=== PATIENT | male | born 1980 | race American Indian/Alaskan Native ===

== ENCOUNTER 2017-11-03 06:53 | Emergency (ER) | payer SELFPAY ==
[2017-11-03 07:29] VITALS: BP 108/78
[2017-11-03] MEDS ORDERED: XYLOCAINE 1% MPF 5 mL ONE (08:16)
[2017-11-03] MEDS ORDERED: XYLOCAINE 1% 20 mL INFILTRATI ONE (08:16)
[2017-11-03] MEDS ORDERED: XYLOCAINE 1% MPF 5 mL INFILTRATI ONE (08:19)
[2017-11-03] MEDS ORDERED: VIBRAMYCIN PO ONE (08:28)
--- NOTE | 2017-11-03 08:30 | Emergency Department Report ---
HPI - General Chief Complaint: Animal Bite Time Seen by Provider: 11/03/17 08:04 - HPI HPI: 36-year-old -[place] male presents to the emergency department with complaint of a tick attached to his lower right abdomen. The patient was walking across the street to the store and felt like there was something biting him. He looked down and saw a small insect attached that was very hard to remove. He then went and changed all of his clothes and did not make any more attempts to remove this insect. He denies any other past medical history. He denies any fever, rash, bleeding, discharge. ED Past Medical Hx - Past Medical History Previous Medical History?: No - Surgical History Past Surgical History?: Yes Additional Surgical History: right leg surgery for broken femur - Social History Smoking Status: Current Every Day Smoker Substance Use Type: Alcohol ED Review of Systems ROS: Stated complaint: INSECT BITE Other details as noted in HPI Comment: All other systems reviewed and negative Constitutional: denies: chills, fever Eyes: denies: eye pain, eye discharge, vision change ENT: denies: ear pain, throat pain Respiratory: denies: cough, shortness of breath, wheezing Cardiovascular: denies: chest pain, palpitations Gastrointestinal: denies: abdominal pain, nausea, diarrhea Genitourinary: denies: urgency, dysuria Musculoskeletal: denies: back pain, joint swelling, arthralgia Skin: denies: rash, lesions Neurological: denies: headache, weakness, paresthesias Physical Exam - Physical Exam Vital Signs: Vital Signs 11/03/17 07:26 Temperature 97.4 F L Pulse Rate 89 Respiratory 18 Rate Blood Pressure 108/78 O2 Sat by Pulse 99 Oximetry Physical Exam: GENERAL: The patient is well-developed well-nourished. HENT: Normocephalic. Atraumatic. Patient has moist mucous membranes. EYES: Extraocular motions are intact. NECK: Supple. Trachea is midline. CHEST/LUNGS: Clear to auscultation. There is no respiratory distress noted. HEART/CARDIOVASCULAR: Regular. There is no tachycardia. There is no murmur. ABDOMEN: Abdomen is soft, nontender. Patient has normal bowel sounds. There is no abdominal distention. SKIN: Skin is warm and dry. There is a very small insect with the appearance of a tick that is adhered to the right lower abdominal wall. No current signs of any erythema migrans. NEURO: The patient is awake, alert, and oriented. The patient is cooperative. The patient has no focal neurologic deficits. The patient has normal speech. MUSCULOSKELETAL: There is no tenderness or deformity. There is no limitation range of motion. There is no evidence of acute injury. ED Course Vital Signs 11/03/17 07:26 Temperature 97.4 F L Pulse Rate 89 Respiratory 18 Rate Blood Pressure 108/78 O2 Sat by Pulse 99 Oximetry - Procedure Description Procedures done: A pair of Small forceps was used to remove the tick from the abdominal wall. The tick was very small and the entire body, head and neck were all removed but there appeared to be some barbs left in the skin. I attempted to get the barbs out just using tweezers but this was difficult to do. 1 mL of 1% lidocaine without epinephrine was then injected around the area of the tick in the barbs. When there was appropriate local anesthesia, an 11 blade scalpel was used to scrape the barbs out. There was a very small amount of oozing blood from the site but total blood loss is estimated at less than 1 mL. ED Medical Decision Making - Medical Decision Making The tick was removed but it appeared as if the barbs were still adhered. As per the procedure section, the barbs were removed. The patient was given a prophylactic dose of 200 mg of doxycycline. I discussed with him about monitoring for infection, especially development of erythema migrans. He has been encouraged follow-up with primary care doctor but to return to a healthcare professional sooner if he sees any signs of this infection or with any acute distress. Critical Care Time: No Critical care attestation.: If time is entered above; I have spent that time in minutes in the direct care of this critically ill patient, excluding procedure time. ED Disposition Clinical Impression: Tick bite of abdomen Qualifiers: Encounter type: initial encounter Qualified Code(s): S30.861A - Insect bite ( nonvenomous) of abdominal wall, initial encounter Disposition: - TO HOME OR SELFCARE Is pt being admited?: No Condition: Stable Instructions: Tick Bite (ED) Additional Instructions: You have been prophylactically treated for your tick bite with doxycycline here in the emergency department. Just be aware that doxycycline can make you more sensitive to the UV rays of the sun. Please follow-up with your primary care physician. Please see a health customer care manager sooner if he started to develop a rash to the area of the tick bite, especially if it starts to look like a target lesion. Referrals: PRIMARY CARE, [Primary Care Provider] - 3-5 Days Forms: Work/School Release Form(ED) Time of Disposition: 08:33
== END 2017-11-03 08:38 | disposition home or self-care (01) ==
LOC: ED 06:53
DX: S30.861A Insect bite (nonvenomous) of abdominal wall, initial encounter (principal); F17.200 Nicotine dependence, unspecified, uncomplicated; W57.XXXA Bitten or stung by nonvenomous insect and other nonvenomous arthropods, initial encounter; Y93.89 Activity, other specified; Y92.89 Other specified places as the place of occurrence of the external cause; Y99.8 Other external cause status
CPT/HCPCS: 99283